=== PATIENT | male | born 1960 | race Caucasian/White ===

== ENCOUNTER → 2017-11-12 | Outpatient (CLI) | payer BC ==
--- NOTE | 2017-11-12 17:04 | KCIC ---
Bilateral lower extremity arterial ultrasound History: Bilateral foot numbness and tingling, leg pain Findings: Multiple grayscale, color, and duplex spectral analysis sonographic images were acquired of the lower extremity arteries bilaterally. There are no previous similar exams. There are triphasic waveforms of the lower extremity arteries bilaterally. There is no demonstrable plaque or significant stenosis. Velocities in cm/sec: RIGHT Common femoral artery 86 Profunda femoris artery 66 Proximal SFA 98 Mid SFA 91 Distal SFA 73 Popliteal artery 53 Anterior tibial artery 49 Peroneal artery 55 Dorsalis pedis artery 49 Posterior tibial artery 94 LEFT: Common femoral artery 104 Profunda femoris artery 59 Proximal SFA 106 Mid SFA 89 Distal SFA 57 Popliteal artery 56 Anterior tibial artery 41 Peroneal artery 50 Dorsalis pedis artery 58 Posterior tibial artery 63 Impression: 1. No significant focal stenosis is identified. Electronically signed by: Baljit Orozco MD (11/12/2017 5:01 PM) [id number]
--- NOTE | 2017-11-12 17:05 | KCIC ---
EXAM: Lower extremity arterial Doppler sonogram with ankle-brachial indices (JASSON). HISTORY: Foot numbness and paresthesia. TECHNIQUE: Doppler sonographic evaluation of the lower extremities was performed and pressure readings were assessed. FINDINGS: Right brachial pressure: 150 mmHg Left brachial pressure: 146 mmHg Right ankle pressure posterior tibial artery: 173 mmHg Right ankle pressure dorsalis pedis artery: 174 mmHg Right ankle JASSON: 1.16 Left ankle pressure posterior tibial artery: 178 mmHg Left ankle pressure dorsalis pedis artery: 168 mmHg Left ankle JASSON: 1.18 IMPRESSION: Normal bilateral ankle-brachial indices. Electronically signed by: Hannah Aranda MD (11/12/2017 5:01 PM) [place] [id number]
== END | disposition home or self-care (01) ==
LOC: KCIC US 14:45
PROVIDERS: ATTEND Nurse Practitioner
DX: M79.604 Pain in right leg (principal); M79.605 Pain in left leg; R20.0 Anesthesia of skin
CPT/HCPCS: 93922; 93925